=== PATIENT | female | born 1945 | race Hispanic/Latino ===

== ENCOUNTER → 2019-02-25 | Outpatient (CLI) | payer MEDICARE ==
[~2019-02-25] MED LIST: LEVOTHYROXINE112 MCG PO; METFORMIN HCL500 M2 PO; SIMVASTATIN20 MG PO
== END ==
LOC: MAMMO 10:45
PROVIDERS: ATTEND Internal Medicine
DX: Z12.31 Encounter for screening mammogram for malignant neoplasm of breast (principal)
CPT/HCPCS: 77067

== ENCOUNTER → 2019-12-16 | Outpatient (CLI) | payer MEDICARE, OTHER ==
--- NOTE | 2019-12-16 11:12 | Diagnostic Imaging Report ---
Right Shoulder - 2 Views HISTORY: Pain COMPARISON: None FINDINGS: Bones: There is adequate internal and external rotation. No acute displaced fracture. Osseous alignment is within normal limits. Joints: Scattered degenerative change most pronounced at the AC joint. No osseous erosion. Soft tissues: The soft tissues appear unremarkable. IMPRESSION: Scattered degenerative change most pronounced at the AC joint. No osseous erosion. Signed by: Dr. Michael Webb M.D. on 12/16/2019 11:08 AM
== END ==
LOC: RAD 10:11
PROVIDERS: ATTEND Internal Medicine
DX: M25.511 Pain in right shoulder (principal)

== ENCOUNTER → 2022-07-01 | Outpatient (CLI) | payer MEDICARE, OTHER | LOC: RAD 10:24 | PROVIDERS: ATTEND Internal Medicine | DX: Z01.818 Encounter for other preprocedural examination (principal) | CPT/HCPCS: 71046; 93005 ==

== ENCOUNTER 2022-07-15 09:32 | Observation (INO) | payer MEDICARE ==
[2022-07-12 08:40] LABS: BASOPHILS % 0.6 % (0.0-1.0); EOSINOPHILS # (AUTO) 0.2 (0.0-0.4); EOSINOPHILS % 3.1 % (0.0-6.0); HEMATOCRIT 33.2 % (34.2-44.1); HEMOGLOBIN 10.2 g/dL (12.0-16.0); LYMPHOCYTES # (AUTO) 2.6 (1.0-3.2); LYMPHOCYTES % 36.8 % (18.0-39.1); MEAN CORPUSCULAR HEMOGLOBIN 27.9 pg (28-32); MEAN CORPUSCULAR HGB CONC 30.7 g/dL (31-35); MEAN CORPUSCULAR VOLUME 90.7 fL (81-99); MONOCYTES # (AUTO) 0.5 (0.2-0.8); NEUTROPHILS # (AUTO) 3.7 (2.1-6.9); NEUTROPHILS % 52.2 % (38.7-80.0); PLATELET COUNT 285 x10e3/uL (140-360); RED BLOOD COUNT 3.66 x10e6/uL (3.6-5.1); RED CELL DISTRIBUTION WIDTH 14.6 % (11.7-14.4)
[2022-07-12 09:16] LABS: ANION GAP 14.3 mmol/L (8-16); CALCIUM 9.5 mg/dL (8.4-10.2); CREATININE, SERUM 1.14 mg/dL (0.57-1.11); POTASSIUM 4.3 mmol/L (3.5-5.1)
[~2022-07-15] VITALS: Ht 160 cm; Wt 80.7 kg
[~2022-07-15 09:32] MED LIST changes: +DICLOFENAC SODI75 MG PO; +JANUVIA50 MG PO; +LEVOCETIRIZINE D5 MG PO; +LIPITOR10 MG PO; +LOSARTAN POTASS25 MG PO; +ROPIVACAINE 246.25 MG, EPINEPHRINE HCL 1:1000 1ML 0.5 MG, CLONIDINE HCL 0.08 MG, KETORO... INJ ONE; +TYLENOL325 M2 PO; +VIT D3 PO
[2022-07-15] MEDS ORDERED: CELECOXIB 200 MG CAP ONE (09:52)
[2022-07-15] MEDS ORDERED: DEXAMETHASONE SOD PHOS 10 MG/1 ML VIAL ONE (09:52)
[2022-07-15] MEDS ORDERED: GABAPENTIN 300 MG CAP ONE (09:53)
[2022-07-15] MEDS ORDERED: BUPIVACAINE HCL 0.5% INJ 30 ML VIAL INJ ONE (11:10)
[2022-07-15] MEDS ORDERED: DEXAMETHASONE SOD PHOS INJ 4 MG/ML SDV ONE (13:10)
[2022-07-15] MEDS ORDERED: POVIDONE IODINE 0.05% 0.05 % ML PO ONE (13:10)
[2022-07-15] MEDS ORDERED: ONDANSETRON HCL INJ 2MG/ML 2ML 2 MG/ML VIAL ONE (13:10)
[2022-07-15] MEDS ORDERED: Vancomycin IV 1 GM VIAL ONE (13:10)
[2022-07-15] MEDS ORDERED: PROPOFOL IV EMULSION 10 MG/ML 20 ML VIAL ONE (13:10)
[2022-07-15] MEDS ORDERED: SEVOFLURANE INHAL SOLN 250 ML PEN BTL ONE (13:10)
[2022-07-15] MEDS ORDERED: LIDOCAINE HCL 2% LOCAL INJ 5 ML SDV VIAL INJ ONE (13:10)
[2022-07-15] MEDS ORDERED: Vancomycin IV 500 MG ONE ×2 (13:12→13:36)
[2022-07-15] MEDS ORDERED: TRANEXAMIC ACID 10 ML ONE ×2 (13:12→13:36)
[2022-07-15] MEDS ORDERED: SODIUM CHLORIDE 0.9% 500ML 500 ML ONE (13:13)
[2022-07-15] MEDS ORDERED: FENTANYL CITRATE/PF 100MCG/2 ML INJ ONE ×3 (13:20→15:56)
[2022-07-15] MEDS ORDERED: MIDAZOLAM HCL 2 MG/2 ML VIAL ONE (13:24)
[2022-07-15] MEDS ORDERED: CLINDAMYCIN 600MG / 50ML 50 ML IV ONE (14:07)
[2022-07-15] MEDS ORDERED: HYDROCODONE/APAP 5MG-325MG TAB PO PRN (15:15)
[2022-07-15] MEDS ORDERED: ZOLPIDEM TARTRATE 5 MG TAB PO PRN (15:15)
[2022-07-15] MEDS ORDERED: ONDANSETRON HCL INJ 2MG/ML 2ML 2 MG/ML VIAL IV PRN (15:15)
[2022-07-15] MEDS ORDERED: ACETAMINOPHEN 650 MG SUPP PR PRN (15:15)
[2022-07-15] MEDS ORDERED: HYDROCODONE/APAP 7.5MG-325MG 1 EA TAB PO PRN (15:15)
[2022-07-15] MEDS ORDERED: DIPHENHYDRAMINE HCL INJ 50 MG/ML VIAL IV PRN (15:15)
[2022-07-15] MEDS ORDERED: DOCUSATE SODIUM 100 MG CAP PO PRN (15:15)
[2022-07-15] MEDS ORDERED: ACETAMINOPHEN 1000 MG/100 ML 100 ML IV ONE (16:05)
[2022-07-15] MEDS: SODIUM CHLORIDE 0.9% 1000ML 1,000 ML IV SCH (16:50)
[2022-07-15] MEDS: CELECOXIB 100 MG CAP PO SCH (17:35)
[2022-07-15] MEDS: ASPIRIN 325 MG TAB PO SCH (17:35)
[2022-07-15] MEDS ORDERED: ACETAMINOPHEN 1000 MG/100 ML IV PRN (18:00)
[2022-07-15] MEDS ORDERED: DEXTROSE 50% SYRINGE 50 ML IV PRN ×3 (18:00→18:15)
[2022-07-15] MEDS: Vancomycin IV 1 GM in SODIUM CHLORIDE 0.9% 250ML 250 ML IV SCH (18:12)
[2022-07-15 20:00] VITALS: BP 106/51
[2022-07-15] MEDS ORDERED: ATORVASTATIN 40 MG TAB PO SCH (21:00)
[2022-07-15 21:10] VITALS: BP 125/61
[2022-07-15 21:12] VITALS: BP 125/61
[2022-07-15] MEDS: CLINDAMYCIN PHOS 900MG/ 50ML 50 ML IV SCH (21:41)
[2022-07-16] VITALS: BP 113/51
[2022-07-16] MEDS: INSULIN REGULAR, HUMAN 100 UNIT/1 ML SQ SCH ×2 (00:42→07:30)
[2022-07-16] MEDS: SODIUM CHLORIDE 0.9% 1000ML 1,000 ML IV SCH (01:15)
[2022-07-16 04:00] VITALS: BP 125/58
[2022-07-16 05:00] LABS: BASOPHILS % 0.3 % (0.0-1.0); EOSINOPHILS % 0.3 % (0.0-6.0); HEMATOCRIT 26.7 % (34.2-44.1); HEMOGLOBIN 8.2 g/dL (12.0-16.0); LYMPHOCYTES # (AUTO) 1.2 (1.0-3.2); LYMPHOCYTES % 15.9 % (18.0-39.1); MEAN CORPUSCULAR HEMOGLOBIN 27.8 pg (28-32); MEAN CORPUSCULAR HGB CONC 30.7 g/dL (31-35); MEAN CORPUSCULAR VOLUME 90.5 fL (81-99); MONOCYTES # (AUTO) 0.8 (0.2-0.8); MONOCYTES % 10.4 % (4.4-11.3); NEUTROPHILS # (AUTO) 5.3 (2.1-6.9); NEUTROPHILS % 72.7 % (38.7-80.0); PLATELET COUNT 215 x10e3/uL (140-360); RED BLOOD COUNT 2.95 x10e6/uL (3.6-5.1); RED CELL DISTRIBUTION WIDTH 14.7 % (11.7-14.4)
[2022-07-16 05:17] LABS: ALBUMIN 3.3 g/dL (3.5-5.0); ALBUMIN/GLOBULIN RATIO 1.3 (0.8-2.0); ANION GAP 11.3 mmol/L (8-16); CALCIUM 8.4 mg/dL (8.4-10.2); CREATININE, SERUM 1.26 mg/dL (0.57-1.11); POTASSIUM 4.3 mmol/L (3.5-5.1)
[2022-07-16] MEDS: CLINDAMYCIN PHOS 900MG/ 50ML 50 ML IV SCH (05:20)
[2022-07-16] MEDS: Vancomycin IV 1 GM in SODIUM CHLORIDE 0.9% 250ML 250 ML IV SCH (05:22)
[2022-07-16 05:31] VITALS: BP 113/51
[2022-07-16] MEDS ORDERED: LEVOTHYROXINE SODIUM 75 MCG TAB PO SCH (06:00)
[2022-07-16 06:30] VITALS: BP 113/51
[2022-07-16] MEDS ORDERED: METFORMIN HCL 850 MG TAB PO SCH (08:00)
[2022-07-16 08:36] VITALS: BP 134/75
[2022-07-16] MEDS: CELECOXIB 100 MG CAP PO SCH (08:40)
[2022-07-16] MEDS: ASPIRIN 325 MG TAB PO SCH (08:41)
[2022-07-16] MEDS ORDERED: SITAGLIPTIN 100 MG TAB PO SCH (09:00)
[2022-07-16] MEDS ORDERED: LOSARTAN POTASSIUM 25 MG TAB PO SCH (09:00)
== END 2022-07-16 11:37 | disposition home health service (06) ==
LOC: OR 09:32 → PACU V 15:01 → MED/SURG3 16:19
PROVIDERS: ADMIT Specialist; ATTEND Specialist
DX: M17.11 Unilateral primary osteoarthritis, right knee (principal); I13.10 Hypertensive heart and chronic kidney disease without heart failure, with stage 1 through stage 4 chronic kidney disease, or unspecified chronic kidney disease; E11.22 Type 2 diabetes mellitus with diabetic chronic kidney disease; N18.30 Chronic kidney disease, stage 3 unspecified; E66.09 Other obesity due to excess calories; Z68.31 Body mass index [BMI] 31.0-31.9, adult; Z79.4 Long term (current) use of insulin; E03.9 Hypothyroidism, unspecified; Z20.822 Contact with and (suspected) exposure to COVID-19; E11.69 Type 2 diabetes mellitus with other specified complication; E78.2 Mixed hyperlipidemia; Z01.818 Encounter for other preprocedural examination
CPT/HCPCS: 0223U; 27447; 36415 ×3; 73560; 80048; 80053; 82948 ×2; 85025 ×2; 86850; 86900; 86920; 94799 ×2; 97116 ×2; 97161; 97530; C1713 ×2; C1776 ×4; G0378 ×2; J0131; J0171; J0690; J1100 ×2; J1817; J1885; J2001; J2250; J2405; J2704; J2795; J3010; J3370 ×3; J7030; J7040; J7050 ×2

== ENCOUNTER 2022-09-13 13:00 | Outpatient (RCR) | payer MEDICARE ==
[~2022-09-13 13:00] MED LIST changes: -ROPIVACAINE 246.25 MG, EPINEPHRINE HCL 1:1000 1ML 0.5 MG, CLONIDINE HCL 0.08 MG, KETORO... INJ ONE
== END 2022-09-15 ==
LOC: PT 13:00
PROVIDERS: ATTEND Physician Assistant
DX: Z47.1 Aftercare following joint replacement surgery (principal); Z96.651 Presence of right artificial knee joint; M62.81 Muscle weakness (generalized); M25.561 Pain in right knee; M25.661 Stiffness of right knee, not elsewhere classified

== ENCOUNTER → 2022-10-16 | Outpatient (RCR) | payer MEDICARE | LOC: PT 09-16 06:57 | PROVIDERS: ATTEND Physician Assistant | DX: Z47.1 Aftercare following joint replacement surgery (principal); Z96.651 Presence of right artificial knee joint; M62.81 Muscle weakness (generalized); M25.561 Pain in right knee; M25.661 Stiffness of right knee, not elsewhere classified ==

== ENCOUNTER 2022-11-07 14:54 | Outpatient (RCR) | payer MEDICARE | END 2022-11-15 | LOC: PT 14:54 | PROVIDERS: ATTEND Physician Assistant | DX: Z47.1 Aftercare following joint replacement surgery (principal); Z96.651 Presence of right artificial knee joint; M25.561 Pain in right knee; M62.81 Muscle weakness (generalized); M25.661 Stiffness of right knee, not elsewhere classified ==

== ENCOUNTER 2024-03-10 14:35 | Outpatient (RCR) | payer MEDICARE | END 2024-03-18 | LOC: PT 14:35 | PROVIDERS: ATTEND Internal Medicine | DX: M17.12 Unilateral primary osteoarthritis, left knee (principal); Z96.651 Presence of right artificial knee joint; M62.81 Muscle weakness (generalized); R26.81 Unsteadiness on feet ==

== ENCOUNTER 2024-03-26 19:48 | Emergency (ER) | payer MEDICARE ==
[~2024-03-26] VITALS: Ht 160 cm; Wt 80.7 kg
[2024-03-26 19:48] VITALS: PULSE 78; RESP 18; TEMP 97.2
[2024-03-26 21:09] VITALS: BP 142/62; PULSE 71; RESP 18; TEMP 98.2; O2SAT 98
== END 2024-03-26 20:50 | disposition home or self-care (01) ==
LOC: FSED 19:59
DX: T59.811A Toxic effect of smoke, accidental (unintentional), initial encounter (principal); Y93.G3 Activity, cooking and baking; Y92.098 Other place in other non-institutional residence as the place of occurrence of the external cause; I10 Essential (primary) hypertension; E11.9 Type 2 diabetes mellitus without complications; E03.9 Hypothyroidism, unspecified; E78.00 Pure hypercholesterolemia, unspecified; F03.90 Unspecified dementia, unspecified severity, without behavioral disturbance, psychotic disturbance, mood disturbance, and anxiety; R94.31 Abnormal electrocardiogram [ECG] [EKG]
CPT/HCPCS: 71046; 93005; 99283